=== PATIENT | male | born 1995 | race Caucasian/White ===

== ENCOUNTER 2019-05-14 04:23 | Emergency (ER) | payer OTHER, BC ==
[~2019-05-14] VITALS: Ht 180.3 cm; Wt 79.5 kg
[~2019-05-14 04:23] MED LIST: OMNICEF 300MG300 MG PO
[2019-05-14] MEDS ORDERED: PROTONIX 40MG T40 MG PO (04:34)
[2019-05-14 05:20] LABS: BASO % 0.3 % (0.0-2.0); EOS % 0.4 % (0-4.0); GRAN # 9.4 (1.4-6.5); HEMATOCRIT 43.1 % (42.0-52.0); HEMOGLOBIN 15.6 g/dl (13.5-18.0); LYMPH # 0.7 (1.2-3.4); LYMPH % 6.1 % (20.0-51.0); MEAN CELL VOLUME 84 fl (80.0-100.0); MEAN CORPUSCULAR HEMOGLOBIN 31 pg (27.0-31.0); MEAN CORPUSCULAR HGB CONC 36 g/dl (33.0-37.0); MEAN PLATELET VOLUME 10.5 fl (7.4-10.4); MONO # 0.9 (0.1-0.6); MONO % 7.7 % (1.7-9.3); PLATELET COUNT 197 K/mm3 (130-400); RED BLOOD COUNT 5.11 M/mm3 (4.20-5.60); REDCELL DISTRIBUTION WIDTH-CV 12.1 % (11.5-14.5)
[2019-05-14 05:25] LABS: ALBUMIN 4.5 gm/dL (3.5-5.0); BILIRUBIN,TOTAL 3.9 mg/dL (0.0-1.0); CALCIUM 9.7 mg/dL (8.4-10.2); CREATININE, serum 0.87 (0.66-1.25); POTASSIUM 3.6 mmol/L (3.4-5.0); TOTAL PROTEIN 7.5 gm/dL (6.4-8.2)
[2019-05-14] MEDS ORDERED: ZOFRAN 4MG T4 MG/TAB PO (06:46)
[2019-05-14 06:50] LABS: INR 1.1 (0.8-3.0); PROTHROMBIN TIME 12.8 SECONDS (9.7-12.8)
[2019-05-14 08:00] VITALS: BP 106/42; PULSE 107; TEMP 100.5
== END 2019-05-14 08:18 | disposition home or self-care (01) ==
LOC: COL.ER 04:23
PROVIDERS: Emergency Medicine
DX: E80.6 Other disorders of bilirubin metabolism (principal); R10.9 Unspecified abdominal pain; R11.2 Nausea with vomiting, unspecified; K21.9 Gastro-esophageal reflux disease without esophagitis; Z88.0 Allergy status to penicillin
CPT/HCPCS: J2405; J7030

== ENCOUNTER 2020-10-05 18:27 | Emergency (ER) | payer OTHER, BC ==
[~2020-10-05] VITALS: Ht 180.3 cm; Wt 86.4 kg
[~2020-10-05 18:27] MED LIST changes: +PROTONIX 40MG T40 MG PO; +ZOFRAN 4MG T4 MG/TAB PO
[2020-10-05 18:46] VITALS: TEMP 98.4
[2020-10-05] MEDS ORDERED: FLEXERIL 1010 MG/TAB PO (21:19)
[2020-10-05 21:34] VITALS: BP 127/78; PULSE 80
== END 2020-10-05 21:46 | disposition home or self-care (01) ==
LOC: COL.ER 18:27
DX: S16.1XXA Strain of muscle, fascia and tendon at neck level, initial encounter (principal); S40.021A Contusion of right upper arm, initial encounter; S30.0XXA Contusion of lower back and pelvis, initial encounter; S20.211A Contusion of right front wall of thorax, initial encounter; R40.2410 Glasgow coma scale score 13-15, unspecified time; K21.9 Gastro-esophageal reflux disease without esophagitis; F17.290 Nicotine dependence, other tobacco product, uncomplicated; Z88.0 Allergy status to penicillin; V29.9XXA Motorcycle rider (driver) (passenger) injured in unspecified traffic accident, initial encounter